=== PATIENT | male | born 1995 | race Caucasian/White ===

== ENCOUNTER 2020-09-20 14:50 | Outpatient (CLI) | payer BC, SELFPAY ==
--- NOTE | ~2020-09-20 | XR_ITS ---
EXAMINATION: XR hip LT min 2V DATE: 09/20/2020 15:14 INDICATION: Left hip pain. TECHNIQUE: 3 views of left hip were obtained. COMPARISON: None. FINDINGS: Bone alignment is normal. There is lateral uncovering of the femoral head, consistent with developmental hip dysplasia. There is widening of the femoral head. No fracture. Left hip joint space is normal. IMPRESSION: 1. Developmental dysplasia of left hip. Reviewed, dictated and finalized at location B.
== END 2020-09-20 14:51 | disposition home or self-care (01) ==
LOC: ANHIMG 15:00
PROVIDERS: PCP Internal Medicine; Visit Provider Nurse Practitioner
DX: M25.552 Pain in left hip (principal); Q65.89 Other specified congenital deformities of hip
CPT/HCPCS: 73502